=== PATIENT | female | born 1950 | race Caucasian/White ===

== ENCOUNTER 2017-03-10 08:00 | Inpatient (IN) | payer MEDICARE, OTHER ==
[~2017-03-10 08:00] MED LIST: Gentamicin 40 MG/ML 2 ML Vial ONE; Povidone-Iodine 10% Soln 118.25 ML Bottle ONE
[2017-03-10] MEDS ORDERED: fentaNYL 100 MCG/2 ML SDV ONE (08:25)
[2017-03-10] MEDS ORDERED: Midazolam 1 MG/ML 2 ML SDV ONE ×2 (08:25→11:59)
[2017-03-10] MEDS ORDERED: Propofol 200 MG/20 ML SDV ONE (08:25)
[2017-03-10] MEDS ORDERED: Gabapentin 300 MG Cap PO ONE (08:30)
[2017-03-10] MEDS ORDERED: Scopolamine 1.5 MG Transdermal Patch TRDERM SCH (08:30)
[2017-03-10] MEDS ORDERED: Acetaminophen 500 MG Tab PO ONE (08:30)
[2017-03-10] MEDS ORDERED: Ropivacaine 49.25 ML, Ketorolac 30 MG, EPINEPHrine 0.5 MG, cloNIDine 80 MCG, Sodium Chl... INJECT ONE ×5 (09:00)
[2017-03-10] MEDS ORDERED: Ketamine 500 MG/5 ML MDV IV SCH (09:00)
[2017-03-10] MEDS: Lactated Ringers 1,000 ML IV SCH (09:12)
[2017-03-10] MEDS: Clindamycin Phosphate 900 MG in Sodium Chloride 0.9% 100 ML IV ONE ×2 (10:12→13:49)
[2017-03-10] MEDS: Tranexamic Acid 1,000 MG in Sodium Chloride 0.9% 50 ML IV SCH ×2 (10:50→13:05)
[2017-03-10] MEDS ORDERED: Lactated Ringers 1,000 ML ONE (11:10)
[2017-03-10] MEDS ORDERED: ePHEDrine 50 MG/ML SDV ONE (11:26)
[2017-03-10] MEDS ORDERED: Sodium Chloride 0.9% 10 ML ONE (11:26)
[2017-03-10] MEDS ORDERED: Morphine 2 MG/ML Syringe IVPUSH PRN (13:04)
[2017-03-10] MEDS ORDERED: Ketorolac 30 MG/ML SDV IVPUSH PRN (13:04)
[2017-03-10] MEDS ORDERED: Naloxone 0.4 MG/ML SDV IVPUSH PRN (13:04)
[2017-03-10] MEDS ORDERED: Aluminum Hydroxide/Magnesium Hydroxide/Simethicone Susp 30 ML Cup PO PRN (13:04)
[2017-03-10] MEDS ORDERED: Diazepam 5 MG Tab PO PRN (13:04)
[2017-03-10] MEDS ORDERED: diphenhydrAMINE 50 MG/ML SDV IVPUSH PRN (13:04)
[2017-03-10] MEDS ORDERED: Zolpidem 5 MG Tab PO PRN (13:04)
[2017-03-10] MEDS ORDERED: Acetaminophen 1,000 MG in Premix Bag 1 BAG IV ONE (13:30)
--- NOTE | 2017-03-10 13:48 | CR ---
Pelvis 1V or 2V INDICATION: post op FINDINGS: Right total hip arthroplasty. Negative for postoperative purposes.
[2017-03-10] MEDS: VERIFY SCOPOLAMINE PATCH TOP SCH (14:17)
[2017-03-10] MEDS: LIPO FLAVONOID PLUS PO SCH ×2 (15:29→21:36)
[2017-03-10] MEDS: oxyCODONE 5 MG Tab PO PRN ×2 (17:41→21:54)
--- NOTE | 2017-03-10 18:43 | OR ---
DATE OF PROCEDURE: 03/10/2017 PREOPERATIVE DIAGNOSIS: Right hip primary osteoarthritis. POSTOPERATIVE DIAGNOSIS: Right hip primary osteoarthritis. PROCEDURE: Right hip total hip arthroplasty. FOOD OPERATIONS MANAGER: Brenda Walker NP. Physician assistant women's soccer coach, Brenda Walker NP, played an essential role in assisting in this case, helping to position the patient, retract structures as needed, as well as suturing and cutting sutures as indicated. Her presence improved patient's safety and decreased operative time. ANESTHESIA: Spinal plus conscious sedation. FLUID: Lactated Ringer solution. ESTIMATED BLOOD LOSS: 50 mL. COMPLICATIONS: None. SPECIMEN: None. DISCHARGE DISPOSITION: Stable to PACU. HISTORY AND INDICATION FOR THE PROCEDURE: The patient was seen preoperatively in the clinic. She had failed nonoperative treatment. Preoperative imaging confirmed the above- mentioned diagnosis. Risks and benefits of the procedure were explained to the patient. Informed consent was obtained. DETAILS OF PROCEDURE: The patient was seen preoperatively by myself and the anesthesia staff in the preoperative holding area where the operative site was marked. She was brought to the operative suite by Anesthesia staff where spinal anesthesia was administered plus conscious sedation. She was placed into a left lateral recumbent position on a pegboard. All extremities found to be well padded. A well-padded axillary roll was placed. The patient was positioned using the pegboard. The right lower extremity was then prepped and draped in a sterile manner. Time-out was called identifying the correct patient, correct procedure, the correct site, and antibiotics had been with appropriate period of time. An incision was made just distal to the level of lesser trochanter, approximately 5 cm proximal to the greater trochanter and carried down to the fascia. Bleeding was controlled during the case with Bovie electrocautery as well as an Aquamantys unit. I then went through the iliotibial band and then used a Charnley for retraction. I then went through the deep musculature including gluteus medius, gluteus minimus, starting at the level of the lesser trochanter and carried it up to the level of the greater trochanter. I then used sharp Homans on both sides of the femoral neck and then split the capsule longitudinally down to the level of the femoral head and then used a deep 10 blade to go over the acetabular rim. I then externally rotated the hip and then made two cuts through the neck and then removed the neck and the head and measured 46 mm. I then cleaned up my cut using a reciprocating saw until it was just below 1 cm proximal to the lesser trochanter. I then placed my Homans at 5 and 7 o'clock as well as Steinmann pin superiorly for retraction. I then removed the labrum using Marek and Bovie as well as a deep 10 blade and then removed any soft tissue from the fovea. I then used a curette to remove any more soft tissue from the foveal area and then used a 46 reamer to go down to the medial wall, then sequentially reamed up to a 53. I trialed this, which provided good fixation and then removed the trial, copiously irrigated with saline and placed a 54 G7 acetabular cup. I then drilled through the superior and posterior hole. At superior hole, I placed a 30-mm screw. At posterior hole, I placed a 25-mm screw. I then placed my polyethylene liner and then I tamped this into position. We then irrigated with saline and then focused on femoral preparation. I used multiple lateralizing reamers as well as a hot box checker on the greater trochanter and then sequentially broached from 4-12. I templated a 13, so 12 was very reasonable. We then trialed with a -3, 40 head lateral offset, which provided excellent stability with no shock. I then removed all my components and I then placed a 12 lateral offset femur with a -3, 40 mm metal head. This provided excellent stability. We then copiously irrigated with saline and then closed the deep capsule and gluteus medius and gluteus minimus with 5 Ethibond sutures in a continuous and interlocking manner, followed by copious irrigation, again injection of local anesthetic into the capsule as well as deep musculature, and then irrigation with Betadine and then closure with #1 3-0 Stratafix and Prineo. Sterile dressing was then placed, and the patient was rolled back into a supine position and then transferred to the hospital bed and taken to the PACU in stable condition. Donovan Tafoya DO /[id number]
[2017-03-10] MEDS: Ondansetron 4 MG/2 ML SDV IVPUSH PRN (19:25)
[2017-03-10] MEDS: traMADol 50 MG Tab PO PRN (19:25)
[2017-03-10] MEDS ORDERED: Sennosides 8.6 MG Tab PO SCH (21:00)
[2017-03-10] MEDS ORDERED: Magnesium Hydroxide 400 MG/5 ML Susp 30 ML Cup PO SCH (21:00)
[2017-03-10] MEDS ORDERED: Docusate Sodium 100 MG Cap PO SCH (21:00)
[2017-03-10] MEDS: Docusate Sodium 100 MG Cap PO SCH (21:38)
[2017-03-10] MEDS: Magnesium Hydroxide 400 MG/5 ML Susp 30 ML Cup PO SCH (21:38)
[2017-03-10] MEDS: Sennosides 8.6 MG Tab PO SCH (21:38)
[2017-03-11] MEDS: Lactated Ringers 1,000 ML IV SCH (00:44)
[2017-03-11] MEDS: oxyCODONE 5 MG Tab PO PRN ×2 (03:33→07:32)
[2017-03-11] MEDS: traMADol 50 MG Tab PO PRN (04:25)
[2017-03-11] MEDS: Pantoprazole 40 MG Tab.CR PO SCH (07:33)
[2017-03-11] MEDS: LIPO FLAVONOID PLUS PO SCH ×3 (08:55→20:15)
[2017-03-11] MEDS: VERIFY SCOPOLAMINE PATCH TOP SCH (08:57)
[2017-03-11] MEDS ORDERED: Bisacodyl 5 MG Tab PO SCH (09:00)
[2017-03-11] MEDS ORDERED: Non-Formulary Medication 1 Each (Omeprazole [Omeprazole] 10 MG) PO SCH (09:00)
[2017-03-11] MEDS ORDERED: Lisinopril 10 MG Tab PO SCH (09:00)
[2017-03-11] MEDS ORDERED: Sodium Chloride 0.9% 10 ML Syringe FLUSH SCH (09:00)
[2017-03-11] MEDS: Magnesium Hydroxide 400 MG/5 ML Susp 30 ML Cup PO SCH ×2 (09:27→20:18)
[2017-03-11] MEDS: Bisacodyl 5 MG Tab PO SCH (09:28)
[2017-03-11] MEDS: Sennosides 8.6 MG Tab PO SCH ×2 (09:28→20:18)
[2017-03-11] MEDS: Docusate Sodium 100 MG Cap PO SCH ×2 (09:29→20:18)
[2017-03-11] MEDS: Sodium Chloride 0.9% 10 ML Syringe FLUSH SCH (09:30)
[2017-03-11] MEDS: Lisinopril 10 MG Tab PO SCH (09:32)
[2017-03-11] MEDS: Ketorolac 30 MG/ML SDV IVPUSH SCH ×2 (11:17→20:18)
[2017-03-11] MEDS: Ondansetron 4 MG/2 ML SDV IVPUSH PRN (11:17)
[2017-03-11] MEDS: Acetaminophen/HYDROcodone 325-5 MG Tab PO PRN ×3 (11:18→23:16)
[2017-03-11] MEDS ORDERED: Aspirin 325 MG Tab.EC PO SCH ×2 (13:04)
[2017-03-11] MEDS ORDERED: Acetaminophen/oxyCODONE 325-5 MG Tab PO PRN (13:04)
[2017-03-12] MEDS: Ketorolac 30 MG/ML SDV IVPUSH SCH ×2 (03:54→12:09)
[2017-03-12] MEDS: Pantoprazole 40 MG Tab.CR PO SCH (07:28)
[2017-03-12] MEDS ORDERED: Ondansetron 4 MG Tab.DIS PO PRN (07:38)
[2017-03-12] MEDS: Acetaminophen/HYDROcodone 325-5 MG Tab PO PRN (07:54)
[2017-03-12] MEDS: LIPO FLAVONOID PLUS PO SCH (08:15)
[2017-03-12 08:21] VITALS: BP 115/79
[2017-03-12] MEDS: Sodium Chloride 0.9% 10 ML Syringe FLUSH SCH (09:17)
[2017-03-12] MEDS: Docusate Sodium 100 MG Cap PO SCH (09:57)
[2017-03-12] MEDS: Magnesium Hydroxide 400 MG/5 ML Susp 30 ML Cup PO SCH (09:58)
[2017-03-12] MEDS: Bisacodyl 5 MG Tab PO SCH (09:58)
[2017-03-12] MEDS: Lisinopril 10 MG Tab PO SCH (09:59)
[2017-03-12] MEDS: Sennosides 8.6 MG Tab PO SCH (09:59)
[2017-03-12] MEDS: VERIFY SCOPOLAMINE PATCH TOP SCH (10:03)
--- NOTE | 2017-03-12 13:01 | PCM.PN ---
- General Info Date of Service: 03/11/17 Admission Dx/Problem (Free Text): patient is status postop day 1 of a right total hip replacement. She is doing very well. Patient denies any pain at this time. She states that she is quite nauseated from the pain medication. She states that she is ambulatory without difficulties. She denies any issues. Functional Status: Reports: Pain Controlled, Tolerating Diet, Ambulating, Urinating - Patient Data Vitals - Most Recent: Last Vital Signs Temp 38.2 C H 03/12/17 08:17 Pulse 109 H 03/12/17 08:17 Resp 14 03/12/17 08:17 BP 115/79 03/12/17 09:59 Pulse Ox 94 L 03/12/17 08:17 Weight - Most Recent: 190 lb 0.016 oz I&O - Last 24 Hours: Intake & Output 03/11/17 03/12/17 03/12/17 22:59 06:59 14:59 Intake Total 720 Output Total 200 400 Balance 520 -400 Lab Results Last 24 Hours: Laboratory Results - last 24 hr 03/12/17 03/12/17 Range/Units 04:00 04:00 WBC 9.1 (4.5-11.0) K/uL RBC 3.53 (3.30-5.50) M/uL Hgb 10.9 L (12.0-15.0) g/dL Hct 33.8 L (36.0-48.0) % MCV 96 (80-98) fL MCH 31 (27-31) pg MCHC 32 (32-36) % Plt Count 220 (150-400) K/uL Neut % (Auto) 72 H (36-66) % Lymph % (Auto) 15 L (24-44) % [place] % (Auto) 11 H (2-6) % Eos % (Auto) 3 (2-4) % Baso % (Auto) 0 (0-1) % Sodium 140 (140-148) mmol/L Potassium 3.6 (3.6-5.2) mmol/L Chloride 104 (100-108) mmol/L Carbon Dioxide 28 (21-32) mmol/L Anion Gap 7.8 (5.0-14.0) mmol/L BUN 14 (7-18) mg/dL Creatinine 0.9 (0.6-1.0) mg/dL Est Cr Clr Drug Dosing 59.64 mL/min Estimated GFR (MDRD) > 60 (>60) Glucose 99 (74-106) mg/dL Calcium 8.6 (8.5-10.1) mg/dL Total Bilirubin 0.8 (0.2-1.0) mg/dL AST 26 (15-37) U/L ALT 22 (12-78) U/L Alkaline Phosphatase 51 (46-116) U/L Total Protein 5.7 L (6.4-8.2) g/dL Albumin 2.7 L (3.4-5.0) g/dL Globulin 3.0 (2.3-3.5) g/dL Albumin/Globulin Ratio 0.9 L (1.2-2.2) Med Orders - Current: Current Medications Discontinued Medications Acetaminophen (Tylenol Extra Strength) 1,000 mg PO ONETIME ONE Stop: 03/10/17 08:31 Last Admin: 03/10/17 08:26 Dose: 1,000 mg Hydrocodone Bitart/Acetaminophen ([place]ox[place]el 325-5 Mg) 2 tab PO Q4H PRN PRN Reason: Pain Last Admin: 03/12/17 07:54 Dose: 2 tab Al Hydroxide/Mg Hydroxide (Mag-Al Plus) 30 ml PO Q4H PRN PRN Reason: Constipation Aspirin (Ecotrin) 325 mg PO DAILY [facility] Aspirin (Ecotrin) 325 mg PO DAILY [facility] Last Admin: 03/12/17 09:58 Dose: 325 mg Bisacodyl (Dulcolax) 10 mg PO DAILY [facility] Bisacodyl (Dulcolax) 10 mg PO DAILY [facility] Last Admin: 03/12/17 09:58 Dose: 10 mg Ropivacaine 49.25 ml/Ketorolac Tromethamine 30 mg/Epinephrine HCl 0.5 mg/ Clonidine HCl 80 mcg/ Sodium Chloride 48.45 ml 0 ml INJECT ONETIME ONE Stop: 03/10/17 09:01 Last Admin: 03/10/17 12:35 Dose: 100 ml Diazepam (Valium.) 5 mg PO Q6H PRN PRN Reason: Spasms Diphenhydramine HCl (Benadryl) 25 mg IVPUSH Q4H PRN PRN Reason: Itching Docusate Sodium (Colace) 100 mg PO BID [facility] Docusate Sodium (Colace) 100 mg PO BID [facility] Last Admin: 03/12/17 09:57 Dose: 100 mg Ephedrine Sulfate (Ephedrine Sulfate) Confirm Administered Dose 50 mg .ROUTE .[facility] ONE Stop: 03/10/17 11:27 Fentanyl (Sublimaze) Confirm Administered Dose 100 mcg .ROUTE .[facility] ONE Stop: 03/10/17 08:26 Gabapentin (Neurontin) 300 mg PO ONETIME ONE Stop: 03/10/17 08:31 Last Admin: 03/10/17 08:26 Dose: 300 mg Gentamicin Sulfate (Gentamicin) Confirm Administered Dose 240 mg .ROUTE .[facility] ONE Stop: 03/10/17 06:52 Last Admin: 03/10/17 11:00 Dose: 240 mg Tranexamic Acid 1,000 mg/ (Sodium Chloride) 60 mls @ 240 mls/hr IV Q3H [facility] Stop: 03/10/17 12:14 Last Admin: 03/10/17 13:05 Dose: 240 mls/hr Clindamycin Phosphate 900 mg/ (Sodium Chloride) 106 mls @ 212 mls/hr IV ONETIME ONE Stop: 03/10/17 09:29 Last Admin: 03/10/17 13:49 Dose: Not Given Lactated Ringer's (Ringers, Lactated) 1,000 mls @ 0 mls/hr IV ASDIRECTED [facility] PRN Reason: KVO Last Admin: 03/11/17 00:44 Dose: 25 mls/hr Lactated Ringer's (Ringers, Lactated) Confirm Administered Dose 1,000 mls @ as directed .ROUTE .[facility] ONE Stop: 03/10/17 11:11 Sodium Chloride (Normal Saline) Confirm Administered Dose 10 mls @ as directed .ROUTE .[facility] ONE Stop: 03/10/17 11:27 Acetaminophen 1,000 mg/ Premix 100 mls @ 400 mls/hr IV NOW ONE Stop: 03/10/17 13:44 Last Admin: 03/10/17 13:50 Dose: 400 mls/hr Clindamycin Phosphate 600 mg/ (Sodium Chloride) 54 mls @ 100 mls/hr IV Q6H [facility] Stop: 03/11/17 04:33 Last Admin: 03/11/17 03:25 Dose: 100 mls/hr Ketamine HCl (Ketalar) 30 mg IV ASDIRECTED [facility] Ketorolac Tromethamine (Toradol) 15 mg IVPUSH Q8H PRN PRN Reason: Pain Stop: 03/15/17 13:04 Last Admin: 03/10/17 14:14 Dose: 15 mg Ketorolac Tromethamine (Toradol) 15 mg IVPUSH Q8H [facility] Stop: 03/15/17 12:01 Last Admin: 03/12/17 12:09 Dose: Not Given Lisinopril (Prinivil) 10 mg PO DAILY [facility] Lisinopril (Prinivil) 10 mg PO DAILY [facility] Last Admin: 03/12/17 09:59 Dose: 10 mg Magnesium Hydroxide (Milk Of Magnesia) 30 ml PO BID [facility] Magnesium Hydroxide (Milk Of Magnesia) 30 ml PO BID [facility] Last Admin: 03/12/17 09:58 Dose: 30 ml Midazolam HCl (Versed 1 Mg/Ml) Confirm Administered Dose 2 mg .ROUTE .STK-MED ONE Stop: 03/10/17 08:26 Midazolam HCl (Versed 1 Mg/Ml) Confirm Administered Dose 2 mg .ROUTE .STK-MED ONE Stop: 03/10/17 12:00 Morphine Sulfate (Morphine) 2 mg IVPUSH Q2H PRN PRN Reason: Pain Naloxone HCl (Narcan) 0.1 mg IVPUSH ONETIME PRN PRN Reason: Oversedation Non-Formulary Medication (Bioflav,Lemon/Vit Bcomp&C [Lipo-Flavonoid Plus Caplet] ) 1 tab PO TID [facility] Non-Formulary Medication (Omeprazole [Omeprazole]) 10 mg PO DAILY [facility] Lipo-Flavonoid Plus (Caplet (Ptom)) 1 tab PO TID [facility] Last Admin: 03/12/17 08:15 Dose: Not Given Verify Scopolamine (Patch) 0 each TOP DAILY [facility] Last Admin: 03/12/17 10:03 Dose: Not Given Ondansetron HCl (Zofran) 8 mg IVPUSH Q4H PRN PRN Reason: Nausea/Vomiting Last Admin: 03/11/17 11:17 Dose: 8 mg Ondansetron HCl (Zofran Odt) 4 mg PO Q4H PRN PRN Reason: Nausea/Vomiting Last Admin: 03/12/17 07:52 Dose: 4 mg Oxycodone HCl (Oxycodone) 10 mg PO Q4H PRN PRN Reason: Pain Stop: 03/11/17 13:04 Last Admin: 03/11/17 07:32 Dose: 10 mg Oxycodone/Acetaminophen (Percocet 325-5 Mg) 2 tab PO Q4H PRN PRN Reason: Pain Pantoprazole Sodium (Protonix) 40 mg PO ACBREAKFAST [facility] Last Admin: 03/12/17 07:28 Dose: 40 mg Povidone Iodine (Betadine 10% Soln) Confirm Administered Dose 1 ml .ROUTE .STK- MED ONE Stop: 03/10/17 06:52 Last Admin: 03/10/17 11:23 Dose: 30 ml Propofol (Diprivan 20 Ml) Confirm Administered Dose 200 mg .ROUTE .STK-MED ONE Stop: 03/10/17 08:26 Scopolamine (Transderm-Scop) 1.5 mg TRDERM Q72H [facility] Stop: 03/12/17 08:31 Last Admin: 03/10/17 08:28 Dose: 1.5 mg Senna (Senna) 8.6 mg PO BID [facility]IER Senna (Senna) 8.6 mg PO BID [facility] Last Admin: 03/12/17 09:59 Dose: 8.6 mg Sodium Chloride (Saline Flush) 10 ml FLUSH DAILY [facility] Sodium Chloride (Saline Flush) 10 ml FLUSH DAILY [facility] Last Admin: 03/12/17 09:17 Dose: Not Given Tramadol HCl (Ultram) 100 mg PO Q6H PRN PRN Reason: Pain Last Admin: 03/11/17 04:25 Dose: 100 mg Zolpidem Tartrate (Ambien) 5 mg PO BEDTIME PRN PRN Reason: Sleep - Problem List Review Problem List Initiated/Reviewed/Updated: Yes - My Orders Last 24 Hours: My Active Orders 03/12/17 08:20 Ready for Discharge [RC] PER UNIT ROUTINE - Plan Plan:: at this time patient is doing very well. We will change her narcotics from Percocet to Roxobel to see if that helps the nausea. I would like her to continue with Zofran as needed. I also I'll order scheduled Toradol instead. we will plan for discharge tomorrow.
--- NOTE | 2017-03-12 13:03 | PCM.DCSUM1 ---
Discharge Summary - Hospital Course Free Text/Narrative:: patient is status postop day 2 of a right total hip replacement. She is doing very well. Patient examined without any difficulties. She is doing much better on the Og[place] and Toradol. She is ready to go home today. She will continue with outpatient therapy. - Discharge Data Discharge Date: 03/12/17 Discharge Disposition: Home, Self-Care 01 Condition: Good - Patient Summary/Data Consults: Consultations 03/10/17 13:04 OT Evaluation and Treatment [CONS] Routine Please Evaluate and Treat. OT Reason for Consult: Strengthening This query below is only for informational purposes and is not editable. PT Evaluation and Treatment [CONS] Routine Please Evaluate and Treat. PT Reason for Consult: Strengthening This query below is only for informational purposes and is not editable. - Patient Instructions Diet: Usual Diet as Tolerated Activity: Apply Ice, As Tolerated Driving: Do Not Drive Showering/Bathing: May Shower, No Tub Bathing/Swimming Wound/Incision Care: Keep Operative Site/Wound Site Clean and Dry Notify Provider of: Fever, Increased Pain, Swelling and Redness, Drainage, Nausea and/or Vomiting - Discharge Plan Prescriptions/Med Rec: Ibuprofen 600 mg PO Q6HR PRN #40 tablet PRN Reason: Pain Aspirin [Ecotrin] 325 mg PO DAILY #30 tab.ec Docusate Sodium [Colace] 100 mg PO BID #90 cap Hydrocodone/Acetaminophen [Ogden 5-325 Tablet] 1 each PO Q4H #90 tablet Ondansetron [Zofran ODT] 4 mg PO Q4H PRN #20 tab.dis PRN Reason: Nausea/Vomiting Home Medications: Home Meds Cranberry Fruit Extract [Cranberry] 425 mg PO DAILY 09/11/15 [History] Multivitamin [One Daily Essential] 1 tab PO DAILY 09/11/15 [History] Omeprazole 10 mg PO DAILY 09/11/15 [History] Lisinopril 10 mg PO DAILY 02/26/16 [History] Bioflav,Lemon/Vit BComp&C [Lipo-Flavonoid Plus Caplet] 1 tab PO TID 06/30/16 [ History] Aspirin [Ecotrin] 325 mg PO DAILY #30 tab.ec 03/12/17 [Rx] Docusate Sodium [Colace] 100 mg PO BID #90 cap 03/12/17 [Rx] Hydrocodone/Acetaminophen [Ogden 5-325 Tablet] 1 each PO Q4H #90 tablet [Rx] Ibuprofen 600 mg PO Q6HR PRN #40 tablet 03/12/17 [Rx] Ondansetron [Zofran ODT] 4 mg PO Q4H PRN #20 tab.dis 03/12/17 [Rx] Patient Handouts: Total Hip Replacement, Care After, [id number], Preventing Constipation After Surgery Referrals: Brenda Walker YARDER [Nurse Practitioner] - - Discharge Summary/Plan Comment DC Time >30 min.: Yes Discharge Summary/Plan Comment: patient will be discharged to home today with outpatient therapy. She will be sent home on Colace Zofran aspirin ibuprofen and Ogden she is to follow-up with us in 2 weeks time. She is notify us if she has any other issues in the meantime. - Patient Data Vitals - Most Recent: Last Vital Signs Temp 38.2 C H 03/12/17 08:17 Pulse 109 H 03/12/17 08:17 Resp 14 03/12/17 08:17 BP 115/79 03/12/17 09:59 Pulse Ox 94 L 03/12/17 08:17 Weight - Most Recent: 190 lb 0.016 oz I&O - Last 24 hours: Intake & Output 03/11/17 03/12/17 03/12/17 22:59 06:59 14:59 Intake Total 720 Output Total 200 400 Balance 520 -400 Lab Results - Last 24 hrs: Laboratory Results - last 24 hr 03/12/17 03/12/17 Range/Units 04:00 04:00 WBC 9.1 (4.5-11.0) K/uL RBC 3.53 (3.30-5.50) M/uL Hgb 10.9 L (12.0-15.0) g/dL Hct 33.8 L (36.0-48.0) % MCV 96 (80-98) fL MCH 31 (27-31) pg MCHC 32 (32-36) % Plt Count 220 (150-400) K/uL Neut % (Auto) 72 H (36-66) % Lymph % (Auto) 15 L (24-44) % [place] % (Auto) 11 H (2-6) % Eos % (Auto) 3 (2-4) % Baso % (Auto) 0 (0-1) % Sodium 140 (140-148) mmol/L Potassium 3.6 (3.6-5.2) mmol/L Chloride 104 (100-108) mmol/L Carbon Dioxide 28 (21-32) mmol/L Anion Gap 7.8 (5.0-14.0) mmol/L BUN 14 (7-18) mg/dL Creatinine 0.9 (0.6-1.0) mg/dL Est Cr Clr Drug Dosing 59.64 mL/min Estimated GFR (MDRD) > 60 (>60) Glucose 99 (74-106) mg/dL Calcium 8.6 (8.5-10.1) mg/dL Total Bilirubin 0.8 (0.2-1.0) mg/dL AST 26 (15-37) U/L ALT 22 (12-78) U/L Alkaline Phosphatase 51 (46-116) U/L Total Protein 5.7 L (6.4-8.2) g/dL Albumin 2.7 L (3.4-5.0) g/dL Globulin 3.0 (2.3-3.5) g/dL Albumin/Globulin Ratio 0.9 L (1.2-2.2) Med Orders - Current: Current Medications Discontinued Medications Acetaminophen (Tylenol Extra Strength) 1,000 mg PO ONETIME ONE Stop: 03/10/17 08:31 Last Admin: 03/10/17 08:26 Dose: 1,000 mg Hydrocodone Bitart/Acetaminophen ([place] 325-5 Mg) 2 tab PO Q4H PRN PRN Reason: Pain Last Admin: 03/12/17 07:54 Dose: 2 tab Al Hydroxide/Mg Hydroxide (Mag-Al Plus) 30 ml PO Q4H PRN PRN Reason: Constipation Aspirin (Ecotrin) 325 mg PO DAILY [facility] Aspirin (Ecotrin) 325 mg PO DAILY [facility] Last Admin: 03/12/17 09:58 Dose: 325 mg Bisacodyl (Dulcolax) 10 mg PO DAILY [facility] Bisacodyl (Dulcolax) 10 mg PO DAILY [facility] Last Admin: 03/12/17 09:58 Dose: 10 mg Ropivacaine 49.25 ml/Ketorolac Tromethamine 30 mg/Epinephrine HCl 0.5 mg/ Clonidine HCl 80 mcg/ Sodium Chloride 48.45 ml 0 ml INJECT ONETIME ONE Stop: 03/10/17 09:01 Last Admin: 03/10/17 12:35 Dose: 100 ml Diazepam (Valium.) 5 mg PO Q6H PRN PRN Reason: Spasms Diphenhydramine HCl (Benadryl) 25 mg IVPUSH Q4H PRN PRN Reason: Itching Docusate Sodium (Colace) 100 mg PO BID [facility] Docusate Sodium (Colace) 100 mg PO BID [facility] Last Admin: 03/12/17 09:57 Dose: 100 mg Ephedrine Sulfate (Ephedrine Sulfate) Confirm Administered Dose 50 mg .ROUTE .STK-MED ONE Stop: 03/10/17 11:27 Fentanyl (Sublimaze) Confirm Administered Dose 100 mcg .ROUTE .STK-MED ONE Stop: 03/10/17 08:26 Gabapentin (Neurontin) 300 mg PO ONETIME ONE Stop: 03/10/17 08:31 Last Admin: 03/10/17 08:26 Dose: 300 mg Gentamicin Sulfate (Gentamicin) Confirm Administered Dose 240 mg .ROUTE .STK- MED ONE Stop: 03/10/17 06:52 Last Admin: 03/10/17 11:00 Dose: 240 mg Tranexamic Acid 1,000 mg/ (Sodium Chloride) 60 mls @ 240 mls/hr IV Q3H [facility] Stop: 03/10/17 12:14 Last Admin: 03/10/17 13:05 Dose: 240 mls/hr Clindamycin Phosphate 900 mg/ (Sodium Chloride) 106 mls @ 212 mls/hr IV ONETIME ONE Stop: 03/10/17 09:29 Last Admin: 03/10/17 13:49 Dose: Not Given Lactated Ringer's (Ringers, Lactated) 1,000 mls @ 0 mls/hr IV ASDIRECTED [facility] PRN Reason: KVO Last Admin: 03/11/17 00:44 Dose: 25 mls/hr Lactated Ringer's (Ringers, Lactated) Confirm Administered Dose 1,000 mls @ as directed .ROUTE .STK-MED ONE Stop: 03/10/17 11:11 Sodium Chloride (Normal Saline) Confirm Administered Dose 10 mls @ as directed .ROUTE .STK-MED ONE Stop: 03/10/17 11:27 Acetaminophen 1,000 mg/ Premix 100 mls @ 400 mls/hr IV NOW ONE Stop: 03/10/17 13:44 Last Admin: 03/10/17 13:50 Dose: 400 mls/hr Clindamycin Phosphate 600 mg/ (Sodium Chloride) 54 mls @ 100 mls/hr IV Q6H [facility] Stop: 03/11/17 04:33 Last Admin: 03/11/17 03:25 Dose: 100 mls/hr Ketamine HCl (Ketalar) 30 mg IV ASDIRECTED [facility] Ketorolac Tromethamine (Toradol) 15 mg IVPUSH Q8H PRN PRN Reason: Pain Stop: 03/15/17 13:04 Last Admin: 03/10/17 14:14 Dose: 15 mg Ketorolac Tromethamine (Toradol) 15 mg IVPUSH Q8H [facility] Stop: 03/15/17 12:01 Last Admin: 03/12/17 12:09 Dose: Not Given Lisinopril (Prinivil) 10 mg PO DAILY [facility] Lisinopril (Prinivil) 10 mg PO DAILY [facility] Last Admin: 03/12/17 09:59 Dose: 10 mg Magnesium Hydroxide (Milk Of Magnesia) 30 ml PO BID [facility] Magnesium Hydroxide (Milk Of Magnesia) 30 ml PO BID [facility] Last Admin: 03/12/17 09:58 Dose: 30 ml Midazolam HCl (Versed 1 Mg/Ml) Confirm Administered Dose 2 mg .ROUTE .STK-MED ONE Stop: 03/10/17 08:26 Midazolam HCl (Versed 1 Mg/Ml) Confirm Administered Dose 2 mg .ROUTE .STK-MED ONE Stop: 03/10/17 12:00 Morphine Sulfate (Morphine) 2 mg IVPUSH Q2H PRN PRN Reason: Pain Naloxone HCl (Narcan) 0.1 mg IVPUSH ONETIME PRN PRN Reason: Oversedation Non-Formulary Medication (Bioflav,Lemon/Vit Bcomp&C [Lipo-Flavonoid Plus Caplet] ) 1 tab PO TID [facility] Non-Formulary Medication (Omeprazole [Omeprazole]) 10 mg PO DAILY [facility] Lipo-Flavonoid Plus (Caplet (Ptom)) 1 tab PO TID [facility] Last Admin: 03/12/17 08:15 Dose: Not Given Verify Scopolamine (Patch) 0 each TOP DAILY [facility] Last Admin: 03/12/17 10:03 Dose: Not Given Ondansetron HCl (Zofran) 8 mg IVPUSH Q4H PRN PRN Reason: Nausea/Vomiting Last Admin: 03/11/17 11:17 Dose: 8 mg Ondansetron HCl (Zofran Odt) 4 mg PO Q4H PRN PRN Reason: Nausea/Vomiting Last Admin: 03/12/17 07:52 Dose: 4 mg Oxycodone HCl (Oxycodone) 10 mg PO Q4H PRN PRN Reason: Pain Stop: 03/11/17 13:04 Last Admin: 03/11/17 07:32 Dose: 10 mg Oxycodone/Acetaminophen (Percocet 325-5 Mg) 2 tab PO Q4H PRN PRN Reason: Pain Pantoprazole Sodium (Protonix) 40 mg PO ACBREAKFAST [facility] Last Admin: 03/12/17 07:28 Dose: 40 mg Povidone Iodine (Betadine 10% Soln) Confirm Administered Dose 1 ml .ROUTE .STK- MED ONE Stop: 03/10/17 06:52 Last Admin: 03/10/17 11:23 Dose: 30 ml Propofol (Diprivan 20 Ml) Confirm Administered Dose 200 mg .ROUTE .STK-MED ONE Stop: 03/10/17 08:26 Scopolamine (Transderm-Scop) 1.5 mg TRDERM Q72H [facility] Stop: 03/12/17 08:31 Last Admin: 03/10/17 08:28 Dose: 1.5 mg Senna (Senna) 8.6 mg PO BID [facility] Senna (Senna) 8.6 mg PO BID [facility] Last Admin: 03/12/17 09:59 Dose: 8.6 mg Sodium Chloride (Saline Flush) 10 ml FLUSH DAILY [facility] Sodium Chloride (Saline Flush) 10 ml FLUSH DAILY [facility] Last Admin: 03/12/17 09:17 Dose: Not Given Tramadol HCl (Ultram) 100 mg PO Q6H PRN PRN Reason: Pain Last Admin: 03/11/17 04:25 Dose: 100 mg Zolpidem Tartrate (Ambien) 5 mg PO BEDTIME PRN PRN Reason: Sleep - Exam General: Reports: Alert, Oriented Extremities: Normal Inspection, Normal Range of Motion Skin: Reports: Warm, Dry, Intact Wound/Incisions: Reports: Healing Well, Dressing Dry and Intact Neurological: Reports: No New Focal Deficit Psy/Mental Status: Reports: Alert *Q Meaningful Use (DIS) - VTE *Q VTE Criteria *Q: - Stroke *Q Stroke Criteria *Q: - AMI *Q AMI Criteria *Q:
== END 2017-03-12 12:00 | disposition home or self-care (01) | DRG 470 ==
LOC: JP.SDSSCHI 08:00 → JP.SDS 08:00 → EDSTATUS 10:00 → JP.MS 13:04
PROVIDERS: ADMIT Orthopaedic Surgery; ATTEND Orthopaedic Surgery
PROC: 0SR902A Replacement of Right Hip Joint with Metal on Polyethylene Synthetic Substitute, Uncemented, Open Approach (ICD-10-PCS; principal; 2017-03-10)
DX: M16.11 Unilateral primary osteoarthritis, right hip (principal); K21.9 Gastro-esophageal reflux disease without esophagitis; M54.9 Dorsalgia, unspecified; G89.29 Other chronic pain; H54.7 Unspecified visual loss; H91.90 Unspecified hearing loss, unspecified ear; Z79.82 Long term (current) use of aspirin; Z88.0 Allergy status to penicillin
CPT/HCPCS: 36415; 72170; 72170-26; 80053; 85025; 86850; 86900; 86901; 94762; 97110-GP; 97161-GP; 97165-GO; 97530-GP; 97535-GP; A9270-GY; C1776; J0131; J0171; J0735; J1580; J1885; J2250; J2405; J2704; J2795; J3010; J7030; J7050; J7120; S0077

== ENCOUNTER 2019-03-22 08:18 | Day surgery (SDC) | payer MEDICARE ==
[2019-03-22] MEDS ORDERED: Dextrose 5%-Lactated Ringers 1,000 ML IV SCH (09:00)
[2019-03-22] MEDS ORDERED: Meropenem 500 MG in Sodium Chloride 0.9% 50 ML IV ONE (09:45)
[2019-03-22] MEDS ORDERED: Midazolam 1 MG/ML 2 ML SDV ONE (11:11)
[2019-03-22] MEDS ORDERED: Propofol 200 MG/20 ML SDV ONE (11:11)
[2019-03-22] MEDS ORDERED: fentaNYL 100 MCG/2 ML SDV ONE (11:11)
[2019-03-22 13:04] VITALS: BP 96/71; PULSE 87
--- NOTE | 2019-03-28 12:38 | OR ---
DATE OF PROCEDURE: 03/22/2019 SURGEON: Cruz Tafoya MD PREOPERATIVE DIAGNOSES: 1. Longstanding gastroesophageal reflux disease. 2. History of colon polyps. POSTOPERATIVE DIAGNOSES: 1. History of gastroesophageal reflux disease with small hiatal hernia and minimal gross inflammation at esophagogastric junction. 2. History of colon polyps with no recurrent polyps on current examination. OPERATIVE PROCEDURE: 1. Esophagogastroduodenoscopy with biopsies of esophagogastric junction. 2. Flexible colonoscopy. ANESTHESIA: IV sedation. INDICATIONS FOR PROCEDURE: This is a 69-year-old, presenting with longstanding gastroesophageal reflux disease. Symptoms are presently well controlled on low-dose omeprazole, presently at 10 mg per day. She also has history of colon polyps, and plan is to proceed with upper GI endoscopy for evaluation of her reflux symptoms, specifically looking for problems such as Esqueda esophagus and a colonoscopy for followup of her history of colon polyps. Potential risks of the procedure including bleeding and perforation were discussed, and the patient wishes to proceed. DETAILS OF PROCEDURE: The patient was taken to the operating room, placed in a left lateral decubitus position. IV sedation was administered, after which the upper GI endoscope was passed orally through the length of the esophagus and the stomach with retroflexion view of the fundus, thereafter through the pyloric channel into the proximal duodenum to the level of the 3rd and 4th portions of the duodenum. Findings included normal hypopharynx, larynx, upper esophageal sphincter, and esophageal body. At the EG junction, a small hiatal hernia was noted in the range of 1 to 2 cm. There was minimal gross inflammation at esophagogastric junction. No plaquing or stricturing, or other suggestion of neoplastic change. Within the stomach, on retroflexion, there was a small hiatal hernia visualized. Otherwise, there was no significant inflammation within the stomach, and the visualized portions of the duodenum were unremarkable. Biopsies were then obtained from esophagogastric junction, sent for histologic evaluation. Minimal bleeding from the biopsy sites was seen and the procedure was then concluded. The initial digital rectal exam was performed and was unremarkable. Scope was then passed into the rectum with retroflexion revealing uncomplicated hemorrhoidal columns. Scope was then passed eventually to level of the cecum. To that level, prep was good with only a small amount of liquid stool and some scattered bits of solid stool present. To that level, there was no diverticula. No areas of colitis. No polyps or other signs of neoplasia. Scope was then withdrawn, the above findings reconfirmed, and the procedure was then concluded. Recommendations and indication would be to repeat the colonoscopy in 5 years. Assuming no Esqueda esophagus is seen on the upper endoscopy, that exam can be repeated on a p.r.n. basis and if Esqueda esophagus is identified assuming there is no significant dysplasia, a repeat endoscopy would be warranted in 2 years, and with the patient presently well controlled in terms of symptoms and gross findings on an upper endoscopy, we would continue with present medical management. Cruz Tafoya MD /[id number]
== END 2019-03-22 13:10 | disposition home or self-care (01) ==
LOC: JP.SDS 08:18
PROVIDERS: ATTEND Surgery
DX: Z12.11 Encounter for screening for malignant neoplasm of colon (principal); K21.9 Gastro-esophageal reflux disease without esophagitis; K44.9 Diaphragmatic hernia without obstruction or gangrene; I10 Essential (primary) hypertension; E66.9 Obesity, unspecified; Z68.28 Body mass index [BMI] 28.0-28.9, adult; Z79.899 Other long term (current) drug therapy; Z88.0 Allergy status to penicillin
CPT/HCPCS: 43239; G0121; J2185; J2250; J2704; J3010; J7050; J7121; 88305

== ENCOUNTER 2024-12-29 07:32 | Day surgery (SDC) | payer MEDICARE ==
[2024-12-29] MEDS: Lactated Ringers 1,000 ML IV SCH (08:15)
[2024-12-29] MEDS ORDERED: Propofol 200 MG/20 ML SDV ONE (08:16)
[2024-12-29] MEDS ORDERED: fentaNYL 100 MCG/2 ML SDV ONE (08:16)
[2024-12-29 10:48] VITALS: BP 138/72; PULSE 80
== END 2024-12-29 10:56 | disposition home or self-care (01) ==
LOC: JP.SDS 07:32
PROVIDERS: ATTEND Surgery
DX: Z12.11 Encounter for screening for malignant neoplasm of colon (principal); D12.5 Benign neoplasm of sigmoid colon; I10 Essential (primary) hypertension; Z88.8 Allergy status to other drugs, medicaments and biological substances; Z88.0 Allergy status to penicillin; Z79.82 Long term (current) use of aspirin; Z79.899 Other long term (current) drug therapy
CPT/HCPCS: 00811; 45385; J2704; J3010; J7120; 88305